=== PATIENT | female | born 1975 | race African-American/Black ===

== ENCOUNTER → 2017-05-11 | Outpatient (CLI) | payer OTHER ==
[~2017-05-11] MED LIST: ALBUTEROL17 GM INH; B-650 MG PO; FLEXERIL10 MG PO; MEDROL DOSEPAK4 MG PO; VOLTAREN75 MG PO
[2017-05-11 11:38] LABS: CHOLESTEROL 190 mg/dL (0-200); GLUCOSE FASTING 85 mg/dL (70-110); HDL CHOLESTEROL 104 mg/dL (35-95); LDL CHOLESTEROL 70 mg/dL (-130); LDL/HDL RATIO 1 RATIO (0-4); TRIGLYCERIDES 81 mg/dL (10-160)
== END | disposition home or self-care (01) ==
LOC: CBAR 08:00
PROVIDERS: Surgery
DX: E66.01 Morbid (severe) obesity due to excess calories (principal)
CPT/HCPCS: 36415; 80061; 82947